=== PATIENT | male | born 1985 | race Caucasian/White ===

== ENCOUNTER 2021-12-09 10:21 | Emergency (ER) | payer OTHER ==
[~2021-12-09] VITALS: Ht 180.3 cm; Wt 104.3 kg
[2021-12-09 10:23] VITALS: BP 154/82
--- NOTE | 2021-12-09 10:25 | NUR ---
NO NURSING INTERVENTIONS NEEDED, SEEN & TREATED BY DR THOMAS GARCÍA.
[2021-12-09 10:30] VITALS: BP 154/82
--- NOTE | 2021-12-09 10:30 | NUR ---
Patient discharged with v/s stable. Written and verbal after care instructions given and explained. Patient verbalized understanding. Police with in custody. All questions addressed prior to discharge. Advised to follow up with PMD.
== END 2021-12-09 10:30 ==
LOC: MED 10:21
DX: K21.9 Gastro-esophageal reflux disease without esophagitis (principal); Z88.0 Allergy status to penicillin
CPT/HCPCS: 99283